=== PATIENT | female | born 1970 | race Two or more races ===

== ENCOUNTER 2018-04-30 23:49 | Emergency (ER) | payer MEDICAID ==
[~2018-04-30] VITALS: Ht 162.6 cm; Wt 64.9 kg
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
[2018-05-01] MEDS ORDERED: IBUPROFEN 600 MG TABLET PO ONE ×2 (00:20→00:30)
[2018-05-01 01:15] VITALS: BP 144/88
== END 2018-05-01 01:20 | disposition home or self-care (01) ==
LOC: ER 23:50
DX: S06.0X0A Concussion without loss of consciousness, initial encounter (principal); E03.9 Hypothyroidism, unspecified; Z85.850 Personal history of malignant neoplasm of thyroid; W18.39XA Other fall on same level, initial encounter; Y93.89 Activity, other specified; Y92.89 Other specified places as the place of occurrence of the external cause; Y99.8 Other external cause status
CPT/HCPCS: 70450-TC

== ENCOUNTER 2018-07-26 22:30 | Emergency (ER) | payer MEDICAID ==
[~2018-07-26] VITALS: Ht 162.6 cm; Wt 64.4 kg
--- NOTE | 2018-07-26 22:37 | NUR ---
Called for triage, no answer.
--- NOTE | 2018-07-26 22:45 | NUR ---
2ND CALL FOR PT, WENT TO HER CAR.
[2018-07-26 23:23] VITALS: BP 133/69
--- NOTE | 2018-07-26 23:23 | NUR ---
PT BIBSELF C/C URINARY FREQUENCY, DISCOMFORT X YESTERDAY, DENIES FLANK PAIN. NO ABD PAIN. PT AOX4. NAD NOTED. RESP EVEN AND UNLABORED. PT ON MONITOR IN BED 9. WILL CONTINUE TO MONITOR.
[2018-07-26 23:44] LABS: APPEARANCE,URINE Clear (CLEAR); BILIRUBIN,URINE Negative (NEGATIVE); BLOOD, URINE Moderate Ery/uL (NEGATIVE); COLOR,URINE Yellow (YELLOW); KETONES,URINE Negative (NEGATIVE); LEUKOCYTE ESTERASE ,URINE Negative (NEGATIVE); NITRITE, URINE Negative (NEGATIVE); PH,URINE 7.5 (5.0-8.0); PROTEIN,URINE Negative (NEGATIVE); UGLUCOSE Negative (NEGATIVE); UROBILINOGEN,URINE 0.2 EU/dL (0.2)
[2018-07-26] MEDS ORDERED: NITROFURANTOIN/NITROFURAN MAC 100 MG CAPSULE ONE (23:44)
[2018-07-27] MEDS ORDERED: NITROFURANTOIN/NITROFURAN MAC 100 MG CAPSULE PO ONE
[2018-07-27 00:09] LABS: BACTERIA,URINE Many /HPF (None Seen); SQUAMOUS EPITHELIAL CELL,UR Moderate /HPF (None Seen)
--- NOTE | 2018-07-27 00:16 | NUR ---
Patient discharged to home in stable condition. Written and verbal after care instructions given. Patient verbalizes understanding of instruction.PT AMBULATORY WITH STEADY GAIT.
== END 2018-07-27 00:18 | disposition home or self-care (01) ==
LOC: ER 22:34
DX: N39.0 Urinary tract infection, site not specified (principal); E03.9 Hypothyroidism, unspecified; Z90.89 Acquired absence of other organs
CPT/HCPCS: 81000-TC; 84703-TC; 87086-TC; 87186-TC

== ENCOUNTER 2018-10-11 17:17 | Emergency (ER) | payer MEDICAID ==
[~2018-10-11] VITALS: Ht 162.6 cm; Wt 64.9 kg
[2018-10-11 17:59] VITALS: BP 110/83
--- NOTE | 2018-10-11 20:04 | NUR ---
Patient discharged to home in stable condition. Rx and Written and verbal after care instructions given. Patient verbalizes understanding of instruction.
== END 2018-10-11 20:06 | disposition home or self-care (01) ==
LOC: ER 17:23
DX: J06.9 Acute upper respiratory infection, unspecified (principal); J02.8 Acute pharyngitis due to other specified organisms; B97.89 Other viral agents as the cause of diseases classified elsewhere; E03.9 Hypothyroidism, unspecified; Z90.89 Acquired absence of other organs

== ENCOUNTER 2019-01-26 17:06 | Emergency (ER) | payer MEDICAID ==
[~2019-01-26] VITALS: Ht 162.6 cm; Wt 68.9 kg
[2019-01-26 17:23] VITALS: BP 125/72
[2019-01-26 18:11] LABS: BASOPHILS % (AUTO) 0.4 % (0.0-2.0); EOSINOPHILS % (AUTO) 1.8 % (0.0-6.0); HEMATOCRIT 37 % (33-45); HEMOGLOBIN 12.1 g/dL (11.5-14.8); LYMPHOCYTES # (AUTO) 1.5 /CMM (0.8-4.8); MEAN CORPUSCULAR HGB CONC 33 g/dl (31.0-36.0); MEAN CORPUSCULAR VOLUME 97 fL (82-100); MONOCYTES # (AUTO) 0.4 /CMM (0.1-1.30); MONOCYTES % (AUTO) 6.3 % (2.0-12.0); NEUTROPHILS # (AUTO) 4.5 /CMM (1.8-8.9); NEUTROPHILS % (AUTO) 68.5 % (43.0-81.0); PLATELET COUNT (AUTO) 281 /CMM (150-450); RED BLOOD CELL COUNT(AUTO) 3.78 MIL/uL (4.0-5.2); WHITE BLOOD COUNT (AUTO) 6.6 K/uL (4.3-11.0)
[2019-01-26 18:31] LABS: CALCIUM, SERUM 8.6 mg/dL (8.5-10.1); CARBON DIOXIDE 28 mmol/L (21-32); CHLORIDE 106 mmol/L (98-107); CREATININE 0.8 mg/dL (0.6-1.3); GLUCOSE 83 mg/dL (74-106); POTASSIUM 3.8 mmol/L (3.5-5.1); SODIUM SERUM 141 mmol/L (136-145); UREA NITROGEN, BLOOD 19 mg/dL (7-18)
[2019-01-26 18:36] LABS: ALANINE AMINOTRANSFERASE 17 U/L (12-78); ALBUMIN 3.5 g/dL (3.4-5.0); ALKALINE PHOSPHATASE 47 U/L (46-116); ASPARTATE AMINOTRANSFERASE 17 U/L (15-37); BILIRUBIN,DIRECT 0.1 mg/dL (0.0-0.2); BILIRUBIN,TOTAL 0.3 mg/dL (0.2-1.0); LIPASE 246 U/L (73-393); TOTAL PROTEIN, SERUM 7.4 g/dL (6.4-8.2)
== END 2019-01-26 19:12 | disposition home or self-care (01) ==
LOC: ER 17:09
DX: K29.70 Gastritis, unspecified, without bleeding (principal); E03.9 Hypothyroidism, unspecified; Z90.89 Acquired absence of other organs; Z85.850 Personal history of malignant neoplasm of thyroid
CPT/HCPCS: 36415; 76705-TC; 80048-TC; 80076-TC; 83690-TC; 84484-TC; 85025-TC

== ENCOUNTER 2019-03-06 22:02 | Emergency (ER) | payer MEDICAID ==
[~2019-03-06] VITALS: Ht 162.6 cm; Wt 68.0 kg
--- NOTE | 2019-03-06 22:27 | NUR ---
PT PLACED IN BED 9. PT BIB SELF TO ER C/O SORE THROAT. PATIENT ALSO STATES THAT SHE HAS A GENERALIZED BODY PAIN AND HEADACHE. AAOX4. NO SOB. BREATHING EVENLY AND UNLABORED. CONNECTED TO MONITOR.
[2019-03-06] MEDS ORDERED: DEXAMETHASONE SOD PHOSPHATE 10 MG/ML VIAL IM ONE (22:30)
[2019-03-06] MEDS ORDERED: KETOROLAC TROMETHAMINE INJ 60 MG/2 ML VIAL IM ONE ×2 (22:30→22:35)
[2019-03-06] MEDS ORDERED: DEXAMETHASONE SOD PHOSPHATE 10 MG/ML VIAL ONE (22:35)
--- NOTE | 2019-03-06 23:15 | NUR ---
Patient discharged to home in stable condition. Written and verbal after care instructions given. Patient verbalizes understanding of instruction.
[2019-03-06 23:16] VITALS: BP 124/71
== END 2019-03-06 23:17 | disposition home or self-care (01) ==
LOC: ER 22:04
DX: J02.9 Acute pharyngitis, unspecified (principal); E03.9 Hypothyroidism, unspecified; Z98.890 Other specified postprocedural states; Z85.850 Personal history of malignant neoplasm of thyroid
CPT/HCPCS: 96372 ×2; 99283; J1100; J1885

== ENCOUNTER 2020-06-22 12:52 | Emergency (ER) | payer MEDICAID ==
[~2020-06-22] VITALS: Ht 162.6 cm; Wt 63.5 kg
[2020-06-22 13:09] VITALS: BP 126/51
[2020-06-22] MEDS ORDERED: NAPR-1164 PO (13:12)
[2020-06-22] MEDS ORDERED: CYCL10TA9 PO (13:12)
[2020-06-22] MEDS ORDERED: IBUPROFEN 600 MG TABLET ONE (13:14)
[2020-06-22] MEDS ORDERED: HYDROCODONE/APAP 5/325MG TABLET ONE (13:14)
--- NOTE | 2020-06-22 13:19 | NUR ---
Patient discharged to home in stable condition. Written and verbal after care instructions given. Patient verbalizes understanding of instruction. Pt ambulatory with a steady gait
[2020-06-22] MEDS ORDERED: HYDROCODONE/APAP 5/325MG TABLET PO ONE (13:30)
[2020-06-22] MEDS ORDERED: IBUPROFEN 600 MG TABLET PO ONE (13:30)
== END 2020-06-22 13:26 | disposition home or self-care (01) ==
LOC: ER 12:57
DX: S39.012A Strain of muscle, fascia and tendon of lower back, initial encounter (principal); Z85.850 Personal history of malignant neoplasm of thyroid; E03.9 Hypothyroidism, unspecified; Z98.890 Other specified postprocedural states; X58.XXXA Exposure to other specified factors, initial encounter; Y93.89 Activity, other specified; Y92.89 Other specified places as the place of occurrence of the external cause; Y99.8 Other external cause status

== ENCOUNTER 2021-03-30 16:45 | Emergency (ER) | payer MEDICAID ==
[~2021-03-30] VITALS: Ht 162.6 cm; Wt 62.1 kg
[~2021-03-30 16:45] MED LIST: CYCL10TA9 PO; NAPR-1164 PO
[2021-03-30] MEDS ORDERED: IBUP-1955 PO (19:12)
[2021-03-30 20:08] VITALS: BP 149/86
== END 2021-03-30 20:09 | disposition home or self-care (01) ==
LOC: ER 16:56
DX: B34.9 Viral infection, unspecified (principal); Z20.822 Contact with and (suspected) exposure to COVID-19; Z85.850 Personal history of malignant neoplasm of thyroid; E89.0 Postprocedural hypothyroidism; R03.0 Elevated blood-pressure reading, without diagnosis of hypertension
CPT/HCPCS: 71045-TC; 86403-TC; 87070-TC; C9803; U0003

== ENCOUNTER 2021-08-26 13:09 | Emergency (ER) | payer MEDICAID ==
[~2021-08-26] VITALS: Ht 162.6 cm; Wt 66.7 kg
[~2021-08-26 13:09] MED LIST changes: +IBUP-1955 PO
[2021-08-26 13:25] VITALS: BP 119/72
--- NOTE | 2021-08-26 13:30 | NUR ---
BIBS THIS 50 YO FEMALE, AMBULATORY WITH CC OF SORETHROAT X 5 DAYS. PLACED COMFORTABLY IN BED. VITALS CHECKED.
[2021-08-26] MEDS ORDERED: DEXAMETHASONE SOD PHOSPHATE 10 MG/ML VIAL IM ONE (15:30)
[2021-08-26] MEDS ORDERED: KETOROLAC TROMETHAMINE INJ 30 MG/ML VIAL IM ONE (15:30)
[2021-08-26] MEDS ORDERED: IBUP-1955 PO (15:31)
[2021-08-26] MEDS ORDERED: KETOROLAC TROMETHAMINE INJ 30 MG/ML VIAL ONE (15:36)
[2021-08-26] MEDS ORDERED: DEXAMETHASONE SOD PHOSPHATE 10 MG/ML VIAL ONE (15:36)
--- NOTE | 2021-08-26 15:48 | NUR ---
COVID PCR SENT TO LAB
--- NOTE | 2021-08-26 15:48 | NUR ---
IM PAIN MEDS GIVEN
--- NOTE | 2021-08-26 16:14 | NUR ---
Patient discharged to home in stable condition. Written and verbal after care instructions given. Patient verbalizes understanding of instruction.
--- NOTE | 2021-08-27 16:46 | NUR ---
CALLED PT REGARDING COVID RESULT.
== END 2021-08-26 16:15 | disposition home or self-care (01) ==
LOC: ER 13:14
DX: U07.1 COVID-19 (principal); J02.8 Acute pharyngitis due to other specified organisms; E89.0 Postprocedural hypothyroidism; Z85.850 Personal history of malignant neoplasm of thyroid
CPT/HCPCS: 96372 ×2; 99284; C9803; J1100; J1885; U0003

== ENCOUNTER 2022-01-05 19:09 | Emergency (ER) | payer MEDICAID ==
[~2022-01-05] VITALS: Ht 162.6 cm; Wt 68.0 kg
[~2022-01-05 19:09] MED LIST changes: -CYCL10TA9 PO; -NAPR-1164 PO
--- NOTE | 2022-01-05 20:39 | NUR ---
SEEN BY ENOC DENG.
--- NOTE | 2022-01-05 20:43 | NUR ---
COVID SWAB DONE AND SENT TO LAB
[2022-01-05] MEDS ORDERED: KETOROLAC TROMETHAMINE INJ 30 MG/ML VIAL ONE (20:47)
[2022-01-05] MEDS: KETOROLAC TROMETHAMINE INJ 60 MG/2 ML VIAL IM ONE (20:52)
[2022-01-05] MEDS ORDERED: BENZ-13 PO (21:25)
--- NOTE | 2022-01-05 21:32 | NUR ---
Patient discharged to home in stable condition. Written and verbal after care instructions given. Patient verbalizes understanding of instruction.
[2022-01-05 23:13] VITALS: BP 116/43
== END 2022-01-05 23:14 | disposition home or self-care (01) ==
LOC: ER 19:10
DX: J02.8 Acute pharyngitis due to other specified organisms (principal); B97.89 Other viral agents as the cause of diseases classified elsewhere; R05.9 Cough, unspecified; Z20.822 Contact with and (suspected) exposure to COVID-19; E89.0 Postprocedural hypothyroidism; Z85.850 Personal history of malignant neoplasm of thyroid
CPT/HCPCS: 99283; 87426; 96372; J1885; C9803

== ENCOUNTER 2022-05-07 19:53 | Emergency (ER) | payer MEDICAID ==
[~2022-05-07] VITALS: Ht 162.6 cm; Wt 68.0 kg
[~2022-05-07 19:53] MED LIST changes: +BENZ-13 PO
--- NOTE | 2022-05-07 21:52 | NUR ---
BIBS FROM HOME FOR C/O HEADACHE X3 DAYS AND SORE THROAT. HX OF HEADACHES. DENIES ANY BLURRED VISION OR NEURO DEFECITS +NASUEA. I GRAM IBUPROFEN TAKEN AT 1400 WITHOUT RELIEF. V/S WNL.
[2022-05-07] MEDS ORDERED: IV NS 0.9% 1,000 ML BAG IV ONE (22:00)
[2022-05-07] MEDS ORDERED: SUMATRIPTAN SUCCINATE 6 MG/0.5 ML VIAL SQ ONE ×2 (22:00→22:05)
[2022-05-07] MEDS ORDERED: METOCLOPRAMIDE HCL 10 MG/2 ML VIAL IV ONE (22:00)
[2022-05-07] MEDS ORDERED: METOCLOPRAMIDE HCL 10 MG/2 ML VIAL ONE (22:05)
--- NOTE | 2022-05-07 22:14 | NUR ---
IV PAPO G20 INSERTED ON RIGHT AC.
--- NOTE | 2022-05-07 22:34 | NUR ---
BROUGHT TO CT DEPT
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
--- NOTE | 2022-05-07 22:42 | NUR ---
RETURN FROM CT
--- NOTE | 2022-05-07 23:57 | NUR ---
IV CANNULA REMOVED
--- NOTE | 2022-05-07 23:57 | NUR ---
Patient discharged to home in stable condition. Written and verbal after care instructions given. Patient verbalizes understanding of instruction.
[2022-05-08 00:23] VITALS: BP 117/64
== END 2022-05-08 00:23 | disposition home or self-care (01) ==
LOC: ER 19:56
DX: G43.909 Migraine, unspecified, not intractable, without status migrainosus (principal); J02.9 Acute pharyngitis, unspecified; Z90.89 Acquired absence of other organs; Z79.899 Other long term (current) drug therapy
CPT/HCPCS: 99285; 96374; 70450; 96361; 96372; 87880; J3030; J2765; J7030; 86403-TC